=== PATIENT | female | born 1945 | race Caucasian/White ===

== ENCOUNTER 2016-11-04 12:08 | Outpatient (CLI) | payer MEDICARE, OTHER ==
[2016-11-04 13:26] LABS: ALT (SGPT) 20 U/L (0-55); AST (SGOT) 22 U/L (5-34); Alkaline Phosphatase 97 U/L (40-150); Anion Gap 18 mmol/L (10-20); BUN (Urea Nitrogen) 25 mg/dL (9.8-20.1); Bilirubin, Total 0.8 mg/dL (0.2-1.2); Calc. Creatinine Clearance 0 mL/min (70-130); Calcium 10.1 mg/dL (7.8-10.44); Carbon Dioxide 29 mmol/L (23-31); Chloride 99 mmol/L (98-107); Estimated GFR-MDRD 47; Globulin 3.1 g/dL (2.4-3.5); Hematocrit 55.7 % (36.0-47.0); LDL Cholesterol, Calculated 88 mg/dL; Mean Platelet Volume 7.7 fL (7.4-10.4); Protein, Total 7.5 g/dL (5.8-8.1); Red Blood Cell (RBC) Count 6.11 mill/uL (4.20-5.40)
== END 2016-11-04 12:09 | disposition home or self-care (01) ==
LOC: BURLAB 12:08
PROVIDERS: ATTEND Internal Medicine
DX: E78.5 Hyperlipidemia, unspecified (principal); I10 Essential (primary) hypertension; E03.9 Hypothyroidism, unspecified
CPT/HCPCS: 36415; 80053; 80061; 84443; 85027

== ENCOUNTER 2017-02-18 13:27 | Outpatient (CLI) | payer MEDICARE, OTHER | END 2017-02-18 13:28 | disposition home or self-care (01) | LOC: BURLAB 13:27 | PROVIDERS: ATTEND Internal Medicine Cardiovascular Disease | DX: R06.09 Other forms of dyspnea (principal) | CPT/HCPCS: 36415; 83880 ==

== ENCOUNTER 2017-04-29 12:36 | Outpatient (CLI) | payer MEDICARE, OTHER ==
[2017-04-29 14:12] LABS: Anion Gap 19 mmol/L (10-20); BUN (Urea Nitrogen) 24 mg/dL (9.8-20.1); Calc. Creatinine Clearance 0 mL/min (70-130); Calcium 10.1 mg/dL (7.8-10.44); Carbon Dioxide 29 mmol/L (23-31); Chloride 102 mmol/L (98-107); Estimated GFR-MDRD 52; Glucose 103 mg/dL (83-110); Potassium 4.8 mmol/L (3.5-5.1); Sodium 145 mmol/L (136-145)
== END 2017-04-29 12:37 | disposition home or self-care (01) ==
LOC: BURLAB 12:36
PROVIDERS: ATTEND Internal Medicine Cardiovascular Disease
DX: I25.10 Atherosclerotic heart disease of native coronary artery without angina pectoris (principal)
CPT/HCPCS: 36415; 80048

== ENCOUNTER 2018-03-29 16:55 | Emergency (ER) | payer MEDICARE, OTHER ==
[2018-03-29] MEDS ORDERED: Amoxicillin/Potassium Clav 875 MG TAB ONE (17:19)
== END 2018-03-29 17:22 | disposition home or self-care (01) ==
LOC: BURERS 16:55
DX: L03.116 Cellulitis of left lower limb (principal); I25.10 Atherosclerotic heart disease of native coronary artery without angina pectoris; E78.5 Hyperlipidemia, unspecified; I11.0 Hypertensive heart disease with heart failure; I50.9 Heart failure, unspecified
CPT/HCPCS: 99283

== ENCOUNTER 2018-12-26 13:06 | Emergency (ER) | payer MEDICARE, OTHER ==
[2018-12-26] MEDS ORDERED: Aspirin Chewable 81 MG TAB ONE (13:11)
[2018-12-26 13:44] LABS: Hemoglobin 15.2 g/dL (12.0-16.0); Mean Corpuscular HGB CONC 30.4 g/dL (32.0-36.0); Mean Corpuscular Hemoglobin 25.3 pg (27.0-31.0); Mean Corpuscular Volume 83.3 fL (78.0-98.0); Mean Platelet Volume 8.5 fL (7.4-10.4); Platelet Count 269 thou/uL (130-400); RBC Distribution Width 18.8 % (11.5-14.5); White Blood Cell (WBC) Count 11.8 thou/uL (4.8-10.8)
[2018-12-26 13:48] LABS: #Basophils 0.1 thou/uL (0.0-0.2); #Eosinphils 0.2 thou/uL (0.0-0.7); #Lymphocytes 2.8 thou/uL (1.20-3.40); #Monocytes 0.9 thou/uL (0.11-0.59); #Neutrophils 7.8 thou/uL (1.40-6.50); %Lymphocytes 23.6 % (21.0-51.0); %Monocytes 7.4 % (0.0-10.0); Basophilic Stippling SLIGHT = 1-2 cells (100X) (None Seen); Hypochromia SLIGHT = 6-15 cells (100X) (0-5/hpf); MDiff Complete? YES; Macrocytosis SLIGHT = 6-15 cells (100X) (0-5/hpf); Microcytosis SLIGHT = 6-15 cells (100X) (0-5/hpf)
[2018-12-26 14:18] LABS: ALT (SGPT) 18 U/L (8-55); AST (SGOT) 24 U/L (5-34); Albumin 4.4 g/dL (3.4-4.8); Alkaline Phosphatase 137 U/L (40-150); Anion Gap 18 mmol/L (10-20); BUN (Urea Nitrogen) 24 mg/dL (9.8-20.1); Bilirubin, Total 0.8 mg/dL (0.2-1.2); Calc. Creatinine Clearance 0 mL/min (70-130); Carbon Dioxide 27 mmol/L (23-31); Chloride 99 mmol/L (98-107); Estimated GFR-MDRD 52; Glucose 100 mg/dL (83-110); Potassium 4.4 mmol/L (3.5-5.1); Protein, Total 7.4 g/dL (6.0-8.3); Sodium 140 mmol/L (136-145)
--- NOTE | 2018-12-26 19:45 | RAD ---
PORTABLE CHEST: 12/26/18 An AP portable film at 1327 is compared with a 08/28/17 study. The heart is mildly enlarged but less so than before. There is no clear congestive change, focal infi ltrate, or large effusion. Median sternotomy sutures are seen from prior surgery. IMPRESSION: Cardiomegaly. POS: HOME
== END 2018-12-26 15:00 | disposition short-term general hospital (02) ==
LOC: BURERS 13:06
DX: R07.89 Other chest pain (principal); E03.9 Hypothyroidism, unspecified; E78.5 Hyperlipidemia, unspecified; I10 Essential (primary) hypertension; Z87.891 Personal history of nicotine dependence; Z79.899 Other long term (current) drug therapy
CPT/HCPCS: 71045; 80053; 83880; 84484; 85025; 93005

== ENCOUNTER 2019-05-12 13:36 | Emergency (ER) | payer MEDICARE, OTHER ==
[2019-05-12] MEDS ORDERED: Dexamethasone 4 mg/ml Vial ONE (13:58)
[2019-05-12] MEDS ORDERED: Albuterol Sulfate 1.25 MG/3 ML NEB ONE (14:21)
== END 2019-05-12 14:47 | disposition home or self-care (01) ==
LOC: BURERS 13:36
DX: J39.2 Other diseases of pharynx (principal); I25.10 Atherosclerotic heart disease of native coronary artery without angina pectoris; E03.9 Hypothyroidism, unspecified; E78.5 Hyperlipidemia, unspecified; E78.00 Pure hypercholesterolemia, unspecified; I11.0 Hypertensive heart disease with heart failure; I50.9 Heart failure, unspecified; Z87.891 Personal history of nicotine dependence
CPT/HCPCS: 99282; J1100